=== PATIENT | female | born 1965 | race Caucasian/White ===

== ENCOUNTER 2019-08-04 00:15 | Inpatient (IN) ==
[2019-08-04] MEDS ORDERED: ALBUTEROL/IPRATROPIUM 3 ML NEB RESP TX STA (00:39)
[2019-08-04] MEDS ORDERED: ONDANSETRON 4 MG/2 ML VIAL IV STA (00:39)
[2019-08-04] MEDS ORDERED: methylPREDNISolone SOD SUC 125 MG/2 ML VIAL IV STA (00:39)
[2019-08-04] MEDS ORDERED: ORPHENADRINE 60 MG/2 ML VIAL IV STA (00:39)
[2019-08-04] MEDS ORDERED: LEVOFLOXACIN INJ 750 MG in PREMIX 1 EACH IV STA (00:45)
[2019-08-04 01:02] LABS: Alanine Aminotransferase 25 U/L (13-56); Albumin 3.3 G/DL (3.4-5.0); Alkaline Phosphatase 90 U/L (45-117); Aspartate Amino Transferase 24 U/L (0-37); Blood Urea Nitrogen 17 MG/DL (7-18); Calcium 8.7 MG/DL (8.5-10.1); Estimated Glom Filtration Rate 42 ML/MIN; Glucose 100 MG/DL (74-106); Osmolality,Calculated 276.7 MOS/KG (273-304); Troponin I < 0.015 NG/ML (0.00-0.045)
[2019-08-04 01:25] LABS: Basophils % 0.2 % (0.0-0.8); Eosinophils % 0.2 % (0.00-10.9); Hematocrit 40.4 VOL% (35.7-47.0); Hemoglobin 13.3 GM/DL (12.0-16.0); Immature Granulocytes % 0.3 %; Immature Granulocytes Absolute 0.03 #; Lymphocytes # 0.7 10*3/uL (1.4-4.0); Lymphocytes % 7.9 % (21.3-54.2); Mean Corpuscular HGB Conc 32.9 GM/DL (32-36); Mean Corpuscular Volume 90.2 FL (87-102); Mean Platelet Volume 9.2 FL (9.6-12.0); Monocytes % 4.7 % (1.7-12.7); Neutrophils % 86.7 % (38.7-73.9); Platelet Count 323 T/CUMM (130-400); Red Blood Count 4.48 MC/CUMM (3.8-5.5); Red Cell Distribution Width 12.8 % (9.3-17.3)
[2019-08-04 01:27] LABS: INR 0.9; PT Patient Result 10.3 SECS (9.6-12.2); Partial Thromboplastin Time 23.2 SECS (20.8-36.0)
[2019-08-04] MEDS ORDERED: SODIUM CHLORIDE 0.9% 1,000 ML IV STA (01:37)
[2019-08-04] MEDS ORDERED: diphenhydrAMINE CAP 25 MG CAPSULE PO PRN (01:58)
[2019-08-04] MEDS ORDERED: BISACODYL 5 MG TABLET PO PRN (01:58)
[2019-08-04] MEDS ORDERED: traZODone 50 MG TABLET PO PRN (01:58)
[2019-08-04] MEDS ORDERED: SODIUM CHLORIDE 0.9% 1,000 ML IV ONE (01:58)
[2019-08-04] MEDS ORDERED: AZITHROMYCIN INJ 500 MG in SODIUM CHLORIDE 0.9% 250 ML IV SCH (02:00)
[2019-08-04] MEDS ORDERED: HYDROmorphone 2 MG/1 ML VIAL ONE (02:05)
[2019-08-04] MEDS ORDERED: HYDROmorphone 2 MG/1 ML VIAL IV STA (02:08)
[2019-08-04] MEDS ORDERED: PIPERACILLIN/TAZOBACTAM 3,375 MG VIAL IV ONE (02:10)
[2019-08-04] MEDS ORDERED: PIPERACILLIN/TAZOBACTAM 3,375 MG in SODIUM CHLORIDE 0.9% 100 ML IV STA (02:12)
[2019-08-04] MEDS: NICOTINE 21 MG/24 HR PATCH TRANSDERM PRN (03:50)
[2019-08-04] MEDS: MORPHINE 4 MG/1 ML VIAL IV PRN ×3 (03:52→14:17)
[2019-08-04] MEDS: PIPERACILLIN/TAZOBACTAM 3,375 MG in SODIUM CHLORIDE 0.9% 100 ML IV SCH ×3 (03:57→19:54)
[2019-08-04] MEDS: SODIUM CHLORIDE 0.9% 1,000 ML IV SCH (03:57)
[2019-08-04] MEDS: POTASSIUM CHLORIDE 20 MEQ TABLET PO PRN (05:31)
[2019-08-04] MEDS: VANCOMYCIN INJ 1,000 MG in SODIUM CHLORIDE 0.9% 250 ML IV SCH (05:32)
[2019-08-04] MEDS: ALBUTEROL/IPRATROPIUM 3 ML NEB RESP TX SCH ×3 (05:56→20:24)
[2019-08-04 08:05] LABS: Basophils % 0.2 % (0.0-0.8); Hematocrit 34.7 VOL% (35.7-47.0); Hemoglobin 11.5 GM/DL (12.0-16.0); Immature Granulocytes % 0.9 %; Immature Granulocytes Absolute 0.17 #; Lymphocytes # 0.4 10*3/uL (1.4-4.0); Lymphocytes % 2.2 % (21.3-54.2); Mean Corpuscular HGB Conc 33.1 GM/DL (32-36); Mean Corpuscular Volume 90.1 FL (87-102); Mean Platelet Volume 9.6 FL (9.6-12.0); Monocytes % 3.3 % (1.7-12.7); Neutrophils % 93.4 % (38.7-73.9); Platelet Count 304 T/CUMM (130-400); Red Blood Count 3.85 MC/CUMM (3.8-5.5); White Blood Count 19.8 T/CUMM (4-12)
[2019-08-04 08:29] LABS: Albumin 2.7 G/DL (3.4-5.0); Bilirubin,Total 1.3 MG/DL (0.2-1.0); Calcium 8.4 MG/DL (8.5-10.1); Osmolality,Calculated 293.8 MOS/KG (273-304); Total Protein 6.8 G/DL (6.4-8.3)
[2019-08-04 08:30] LABS: Band Neutrophils 8 % (0-10); Lymphocytes 2 % (20-55); Platelet Estimate Adequate; Segmented Neutrophils 84 % (50-85); Total Cells Counted 100
[2019-08-04 08:31] LABS: Hypochromasia 1+
[2019-08-04] MEDS: AZITHROMYCIN INJ 500 MG in SODIUM CHLORIDE 0.9% 250 ML IV SCH (16:26)
[2019-08-04] MEDS: clonazePAM 0.5 MG TABLET PO PRN (19:54)
[2019-08-04] MEDS: ONDANSETRON 4 MG/2 ML VIAL IV PRN (20:05)
[2019-08-05] MEDS: ALBUTEROL/IPRATROPIUM 3 ML NEB RESP TX SCH ×4 (00:54→19:49)
[2019-08-05] MEDS: SODIUM CHLORIDE 0.9% 1,000 ML IV SCH ×5 (01:30→17:48)
[2019-08-05] MEDS: PIPERACILLIN/TAZOBACTAM 3,375 MG in SODIUM CHLORIDE 0.9% 100 ML IV SCH ×3 (04:02→18:44)
[2019-08-05] MEDS: VANCOMYCIN INJ 1,000 MG in SODIUM CHLORIDE 0.9% 250 ML IV SCH (04:04)
[2019-08-05] MEDS: clonazePAM 0.5 MG TABLET PO PRN ×2 (04:08→16:00)
[2019-08-05 05:42] LABS: Basophils % 0.2 % (0.0-0.8); Hematocrit 33.5 VOL% (35.7-47.0); Hemoglobin 10.9 GM/DL (12.0-16.0); Immature Granulocytes % 1.2 %; Immature Granulocytes Absolute 0.31 #; Lymphocytes # 3.6 10*3/uL (1.4-4.0); Lymphocytes % 13.4 % (21.3-54.2); Mean Corpuscular HGB Conc 32.5 GM/DL (32-36); Mean Corpuscular Volume 91.5 FL (87-102); Mean Platelet Volume 9.6 FL (9.6-12.0); Monocytes % 5.5 % (1.7-12.7); Neutrophils % 79.7 % (38.7-73.9); Platelet Count 282 T/CUMM (130-400); Red Blood Count 3.66 MC/CUMM (3.8-5.5); Red Cell Distribution Width 13.2 % (9.3-17.3); White Blood Count 26.5 T/CUMM (4-12)
[2019-08-05 05:58] LABS: Calcium 8.8 MG/DL (8.5-10.1); Osmolality,Calculated 283.1 MOS/KG (273-304)
[2019-08-05 06:27] LABS: Band Neutrophils 1 % (0-10); Lymphocytes 9 % (20-55); Platelet Estimate Normal; Polychromasia Few; Segmented Neutrophils 88 % (50-85); Total Cells Counted 100
[2019-08-05] MEDS: MORPHINE 4 MG/1 ML VIAL IV PRN ×3 (11:19→20:10)
[2019-08-05] MEDS ORDERED: VANCOMYCIN INJ 1,000 MG in SODIUM CHLORIDE 0.9% 250 ML IV SCH (16:00)
[2019-08-05] MEDS: AZITHROMYCIN INJ 500 MG in SODIUM CHLORIDE 0.9% 250 ML IV SCH (16:11)
[2019-08-05 16:55] LABS: Apearance,Urine CLEAR (Clear); Bilirubin,Urine Negative (Negative); Blood, Urine Negative (Negative); Glucose,Urine (UA) Negative (Negative); Ketones,Urine Negative (Negative); Nitrite,Urine Negative (Negative); Protein,Urine Negative; RBC,Urine <1 /HPF (0-4); Squamous Epithelial Cell,Urine Occasional /HPF (0-10); Urine Color Straw (Yellow); Urine Specific Gravity 1.009 (1.001-1.035); WBC,Urine <1 /HPF (0-6)
[2019-08-05 17:18] LABS: Barbiturates Screen,Urine Negative (Negative); Benzodiazepines Screen,Urine Positive (Negative); Cannabinoid Screen,Urine Negative (Negative); Opiate Screen,Urine Positive (Negative); Phencyclidine Screen,Urine Negative (Negative)
[2019-08-05] MEDS: LOPERAMIDE 2 MG CAPSULE PO PRN (22:35)
[2019-08-06] MEDS: SODIUM CHLORIDE 0.9% 1,000 ML IV SCH (00:22)
[2019-08-06] MEDS: MORPHINE 4 MG/1 ML VIAL IV PRN ×5 (00:23→21:15)
[2019-08-06] MEDS: clonazePAM 0.5 MG TABLET PO PRN ×3 (00:25→21:46)
[2019-08-06] MEDS: ALBUTEROL/IPRATROPIUM 3 ML NEB RESP TX SCH ×4 (02:10→19:52)
[2019-08-06] MEDS: PIPERACILLIN/TAZOBACTAM 3,375 MG in SODIUM CHLORIDE 0.9% 100 ML IV SCH ×3 (03:50→18:54)
[2019-08-06] MEDS: LOPERAMIDE 2 MG CAPSULE PO PRN ×2 (03:50→10:59)
[2019-08-06] MEDS: NICOTINE 21 MG/24 HR PATCH TRANSDERM PRN (11:00)
[2019-08-06] MEDS: METOPROLOL TARTRATE 25 MG TABLET PO SCH ×2 (14:29→21:15)
[2019-08-06] MEDS ORDERED: CLINDAMYCIN INJ 600 MG in PREMIX 1 EACH IV SCH (15:00)
[2019-08-06] MEDS: LEVOFLOXACIN INJ 750 MG in PREMIX 1 EACH IV SCH (16:32)
[2019-08-06] MEDS: POTASSIUM CHLORIDE 20 MEQ TABLET PO PRN (21:15)
[2019-08-07] MEDS: ALBUTEROL/IPRATROPIUM 3 ML NEB RESP TX SCH ×4 (01:07→18:30)
[2019-08-07] MEDS: SODIUM CHLORIDE 0.9% 1,000 ML IV SCH ×3 (01:24→21:07)
[2019-08-07] MEDS: MORPHINE 4 MG/1 ML VIAL IV PRN ×4 (04:16→21:39)
[2019-08-07] MEDS: PIPERACILLIN/TAZOBACTAM 3,375 MG in SODIUM CHLORIDE 0.9% 100 ML IV SCH ×2 (04:57→12:57)
[2019-08-07] MEDS: METOPROLOL TARTRATE 25 MG TABLET PO SCH ×2 (09:37→21:05)
[2019-08-07] MEDS: clonazePAM 0.5 MG TABLET PO PRN ×2 (10:55→21:06)
[2019-08-07] MEDS: methylPREDNISolone SOD SUC 40 MG/1 ML VIAL IV SCH ×2 (15:07→21:15)
[2019-08-07] MEDS: LOPERAMIDE 2 MG CAPSULE PO PRN ×2 (15:07→21:06)
[2019-08-07] MEDS: LEVOFLOXACIN INJ 750 MG in PREMIX 1 EACH IV SCH (17:30)
[2019-08-07] MEDS: ACETAMINOPHEN 325 MG TABLET PO PRN ×2 (17:42→21:06)
[2019-08-07] MEDS: guaiFENesin/DM ER 600-30 MG TABLET PO PRN (21:06)
[2019-08-08] MEDS: MORPHINE 4 MG/1 ML VIAL IV PRN ×5 (03:47→21:22)
[2019-08-08] MEDS: LOPERAMIDE 2 MG CAPSULE PO PRN ×5 (04:01→21:22)
[2019-08-08 05:38] LABS: Basophils % 0.3 % (0.0-0.8); Hematocrit 38.4 VOL% (35.7-47.0); Hemoglobin 12.8 GM/DL (12.0-16.0); Immature Granulocytes % 2.3 %; Immature Granulocytes Absolute 0.14 #; Lymphocytes # 1.3 10*3/uL (1.4-4.0); Lymphocytes % 21.8 % (21.3-54.2); Mean Corpuscular HGB Conc 33.3 GM/DL (32-36); Mean Corpuscular Volume 87.7 FL (87-102); Monocytes % 3.8 % (1.7-12.7); Neutrophils % 71.8 % (38.7-73.9); Platelet Count 374 T/CUMM (130-400); Red Blood Count 4.38 MC/CUMM (3.8-5.5); Red Cell Distribution Width 12.5 % (9.3-17.3)
[2019-08-08] MEDS: methylPREDNISolone SOD SUC 40 MG/1 ML VIAL IV SCH ×3 (05:52→21:22)
[2019-08-08 05:57] LABS: Osmolality,Calculated 280.5 MOS/KG (273-304)
[2019-08-08] MEDS: SODIUM CHLORIDE 0.9% 1,000 ML IV SCH ×3 (08:35→08:36)
[2019-08-08] MEDS: ONDANSETRON 4 MG/2 ML VIAL IV PRN ×4 (08:37→21:22)
[2019-08-08] MEDS: METOPROLOL TARTRATE 25 MG TABLET PO SCH ×2 (08:37→20:32)
[2019-08-08] MEDS: clonazePAM 0.5 MG TABLET PO PRN ×2 (08:45→20:32)
[2019-08-08] MEDS: ALBUTEROL/IPRATROPIUM 3 ML NEB RESP TX SCH ×4 (11:29→20:22)
[2019-08-08] MEDS: NICOTINE 21 MG/24 HR PATCH TRANSDERM PRN (12:50)
[2019-08-08] MEDS: LEVOFLOXACIN INJ 750 MG in PREMIX 1 EACH IV SCH (14:36)
[2019-08-08] MEDS: ACETAMINOPHEN 325 MG TABLET PO PRN (14:38)
[2019-08-08] MEDS: CALCIUM CARBONATE CHEW 500 MG TABLET PO PRN (18:00)
[2019-08-08] MEDS: guaiFENesin/DM ER 600-30 MG TABLET PO PRN (21:22)
[2019-08-09] MEDS: ALBUTEROL/IPRATROPIUM 3 ML NEB RESP TX SCH ×2 (00:24→07:10)
[2019-08-09] MEDS: CALCIUM CARBONATE CHEW 500 MG TABLET PO PRN ×2 (00:57→12:01)
[2019-08-09] MEDS: MORPHINE 4 MG/1 ML VIAL IV PRN ×3 (00:58→09:11)
[2019-08-09] MEDS: ACETAMINOPHEN 325 MG TABLET PO PRN (03:55)
[2019-08-09] MEDS: ONDANSETRON 4 MG/2 ML VIAL IV PRN (03:55)
[2019-08-09] MEDS: LOPERAMIDE 2 MG CAPSULE PO PRN ×2 (03:56→09:26)
[2019-08-09] MEDS: SODIUM CHLORIDE 0.9% 1,000 ML IV SCH (04:00)
[2019-08-09] MEDS: methylPREDNISolone SOD SUC 40 MG/1 ML VIAL IV SCH (05:19)
[2019-08-09 07:41] VITALS: BP 135/76
[2019-08-09] MEDS: METOPROLOL TARTRATE 25 MG TABLET PO SCH (09:11)
[2019-08-09] MEDS: NICOTINE 21 MG/24 HR PATCH TRANSDERM PRN (09:26)
[2019-08-09] MEDS: guaiFENesin/DM ER 600-30 MG TABLET PO PRN (09:26)
[2019-08-09] MEDS: clonazePAM 0.5 MG TABLET PO PRN (09:26)
== END 2019-08-09 12:20 | disposition home or self-care (01) | DRG 178 ==
LOC: N.ED 00:15 → N.EDINP 01:58 → SUATTDRO 01:58 → N.EDINP 02:51 → N.TELEN 03:27 → N.5E 08-07 20:04
PROVIDERS: ADMIT Internal Medicine; ATTEND Family Medicine

== ENCOUNTER 2022-01-18 14:42 | Observation (INO) ==
[2022-01-18] MEDS ORDERED: hydrALAZINE 20 MG/1 ML VIAL IV STA (15:12)
[2022-01-18 15:21] LABS: Basophils # 0.1 10*3/uL (0.0-0.2); Eosinophils # 0.1 10*3/uL (0.0-0.87); Eosinophils % 2.9 % (0.00-10.9); Hematocrit 39.1 VOL% (35.7-47.0); Immature Granulocytes % 0.2 %; Immature Granulocytes Absolute 0.01 #; Lymphocytes # 2.3 10*3/uL (1.4-4.0); Mean Corpuscular HGB Conc 33.2 GM/DL (32-36); Mean Corpuscular Volume 89.5 FL (87-102); Mean Platelet Volume 9.6 FL (9.6-12.0); Monocytes # 0.6 10*3/uL (0.11-0.8); Monocytes % 12.7 % (1.7-12.7); Neutrophils % 35.2 % (38.7-73.9); Platelet Count 261 T/CUMM (130-400); Red Blood Count 4.37 MC/CUMM (3.8-5.5); Red Cell Distribution Width 12.4 % (9.3-17.3); White Blood Count 4.9 T/CUMM (4-12)
[2022-01-18 15:33] LABS: Alanine Aminotransferase 39 U/L (13-56); Albumin 3.5 G/DL (3.4-5.0); Alkaline Phosphatase 99 U/L (45-117); Aspartate Amino Transferase 37 U/L (0-37); Bilirubin,Total < 0.39 MG/DL (0.20-1.00); Blood Urea Nitrogen 12 MG/DL (7-18); Calcium 9.3 MG/DL (8.5-10.1); Carbon Dioxide 25 MMOL/L (21-32); Chloride 108 MMOL/L (98-107); Glucose 108 MG/DL (74-106); Osmolality,Calculated 277.5 MOS/KG (273-304); Potassium 4.4 MMOL/L (3.5-5.1); Sodium 139 MMOL/L (136-145); Total Protein 8.6 G/DL (6.4-8.2)
[2022-01-18] MEDS ORDERED: hydrALAZINE 20 MG/1 ML VIAL IM STA (16:12)
[2022-01-18 17:05] LABS: Atypical Lymphocytes Few; Eosinophils 1 % (0-10); Lymphocytes 45 % (20-55); Total Cells Counted 100
[2022-01-18 17:06] LABS: Platelet Estimate Normal
[2022-01-18 17:24] LABS: Bilirubin,Urine Negative (Negative); Blood, Urine Negative (Negative); Glucose,Urine (UA) Negative (Negative); Ketones,Urine Negative (Negative); Nitrite,Urine Negative (Negative); Protein,Urine Negative (Negative); Urine Appearance Clear (Clear); Urine Color Yellow (Yellow); Urine Urobilinogen 0.2 eU/dL (<2.0)
[2022-01-18 17:27] LABS: Bacteria,Urine Occasional /HPF (Few); Mucus,Urine Occasional /LPF (Occasional); Squamous Epithelial Cell,Urine Occasional /HPF (0-10)
[2022-01-18 17:32] LABS: Barbiturates Screen,Urine Negative (Negative); Benzodiazepines Screen,Urine Negative (Negative); Cannabinoid Screen,Urine Negative (Negative); Opiate Screen,Urine Negative (Negative); Phencyclidine Screen,Urine Negative (Negative)
[2022-01-18] MEDS ORDERED: LORazepam 2 MG/1 ML VIAL IV STA (17:37)
[2022-01-18 17:46] LABS: INR 0.9; PT Patient Result 9.9 SECS (10.5-12.0); Partial Thromboplastin Time 26.3 SECS (23.8-32.1)
[2022-01-18] MEDS ORDERED: GLUCAGON 1 MG VIAL IM PRN (20:22)
[2022-01-18] MEDS ORDERED: ACETAMINOPHEN 325 MG TABLET PO PRN (20:22)
[2022-01-18] MEDS ORDERED: NICOTINE 21 MG/24 HR PATCH TRANSDERM PRN (20:22)
[2022-01-18] MEDS ORDERED: MAGNESIUM SULF RIDER 2 GM/50 ML PREMIX IV PRN (20:22)
[2022-01-18] MEDS ORDERED: ONDANSETRON 4 MG/2 ML VIAL IV PRN (20:22)
[2022-01-18] MEDS ORDERED: hydrALAZINE 20 MG/1 ML VIAL IV PRN (20:22)
[2022-01-18] MEDS ORDERED: MAGNESIUM SULF RIDER 4 GM/100 ML PREMIX IV PRN (20:22)
[2022-01-18] MEDS ORDERED: POTASSIUM CHLORIDE 20 MEQ TABLET PO PRN (20:30)
[2022-01-18] MEDS ORDERED: POTASSIUM CHLORIDE RIDER 10 MEQ/100 ML PREMIX IV PRN (20:30)
[2022-01-18] MEDS ORDERED: ASPIRIN CHEW 81 MG TABLET PO STA (20:34)
[2022-01-18] MEDS ORDERED: CLOPIDOGREL 300 MG TABLET PO STA (20:35)
[2022-01-18] MEDS ORDERED: DEXTROSE 10% 250 ML BAG IV PRN (20:58)
[2022-01-18] MEDS: DOCUSATE SODIUM 100 MG CAPSULE PO SCH (21:25)
[2022-01-18] MEDS: SODIUM CHLORIDE 0.9% 1,000 ML IV SCH (21:55)
[2022-01-19 05:06] LABS: Basophils # 0.1 10*3/uL (0.0-0.2); Basophils % 1.2 % (0.0-0.8); Eosinophils # 0.2 10*3/uL (0.0-0.87); Eosinophils % 4.3 % (0.00-10.9); Hematocrit 35.4 VOL% (35.7-47.0); Hemoglobin 11.4 GM/DL (12.0-16.0); Lymphocytes # 2.9 10*3/uL (1.4-4.0); Lymphocytes % 60.3 % (21.3-54.2); Mean Corpuscular HGB Conc 32.2 GM/DL (32-36); Mean Corpuscular Volume 89.8 FL (87-102); Mean Platelet Volume 9.5 FL (9.6-12.0); Monocytes # 0.7 10*3/uL (0.11-0.8); Monocytes % 14.3 % (1.7-12.7); Neutrophils % 19.9 % (38.7-73.9); Platelet Count 255 T/CUMM (130-400); Red Blood Count 3.94 MC/CUMM (3.8-5.5); Red Cell Distribution Width 12.7 % (9.3-17.3); White Blood Count 4.8 T/CUMM (4-12)
[2022-01-19 05:16] LABS: INR 0.9; PT Patient Result 10.3 SECS (10.5-12.0); Partial Thromboplastin Time 26.8 SECS (23.8-32.1)
[2022-01-19 05:31] LABS: Calcium 9.4 MG/DL (8.5-10.1); Osmolality,Calculated 273.7 MOS/KG (273-304); Risk Ratio 2.27; Thyroid Stimulating Hormone 2.66 uIU/ml (0.358-3.74); VLDL Cholesterol 16.2 MG/DL
[2022-01-19 05:38] LABS: Eosinophils 9 % (0-10); Lymphocytes 61 % (20-55); Total Cells Counted 100
[2022-01-19 05:39] LABS: Atypical Lymphocytes Few; Platelet Estimate Adequate
[2022-01-19] MEDS ORDERED: NON-FORMULARY MEDICATION (Buprenorphine-Naloxone [Suboxone] 8-2 mg film) SL SCH (07:15)
[2022-01-19] MEDS: DOCUSATE SODIUM 100 MG CAPSULE PO SCH (08:09)
[2022-01-19] MEDS ORDERED: PANTOPRAZOLE 40 MG TABLET PO SCH (09:00)
[2022-01-19] MEDS ORDERED: LOSARTAN 25 MG TABLET PO SCH (09:00)
[2022-01-19] MEDS ORDERED: CLOPIDOGREL 75 MG TABLET PO SCH (09:00)
[2022-01-19] MEDS ORDERED: ASPIRIN EC 81 MG TABLET PO SCH (09:00)
[2022-01-19] MEDS ORDERED: clonazePAM 0.5 MG TABLET PO PRN (09:01)
[2022-01-19] MEDS: SODIUM CHLORIDE 0.9% 1,000 ML IV SCH (09:15)
[2022-01-19] MEDS ORDERED: ENOXAPARIN 40 MG/0.4 ML SYRINGE SUBCUT SCH (09:30)
[2022-01-19 15:40] VITALS: BP 156/75
== END 2022-01-19 16:30 | disposition home or self-care (01) ==
LOC: N.EDINP 14:42 → N.ED 14:42 → N.3E 14:42 → SUATTDRO 20:22 → N.3E 01-19 00:01
PROVIDERS: ADMIT Internal Medicine; ATTEND Internal Medicine